=== PATIENT | male | born 1990 | race African-American/Black ===

== ENCOUNTER → 2023-10-24 | Emergency (ER) | payer OTHER ==
[~2023-10-24] MED LIST: LABETALOL 20 MG/4ML SYRINGE IV ONE
[2023-10-24 17:07] LABS: Absolute Lymphocytes (CBC) 2.1 K/uL (0.7-4.9); Lymphocytes % 30.6 % (15.3-44.8); MCV 91.4 fL (80-100); Platelets 246 thou/uL (152-406); RBC Red Blood Cell Count 4.59 M/uL (4.33-5.43)
[2023-10-24 17:23] LABS: Potassium 3.7 mEq/L (3.5-5.1); Troponin High Sensitivity 6.6 pg/mL (<58.9)
--- NOTE | 2023-10-24 17:38 | ER ---
Nurse's Notes [facility] Name: Marcelo Ontiveros Age: 33 yrs Sex: Male : 1990 Arrival Date: 10/24/2023 Time: 16:18 Bed 18 Private MD: Diagnosis: Essential (primary) hypertension Presentation: 10/24 16:27 Chief complaint: EMS states: patient was evaluated by the nurse at the [facility], where ap3 he was treated for high blood pressure. He was given Lisinopril, Clonidine, Hydrochlorothiazide, and hydralazine [employer]PER[employer]OR [employer] by the nurse at the [facility]. patient denies any pain at this time. Coronavirus screen: At this time, the client does not indicate any symptoms associated with coronavirus-19. Ebola Screen: No symptoms or risks identified at this time. Risk Assessment: Do you want to hurt yourself or someone else? Patient reports no desire to harm self or others. Onset of symptoms was October 24, 2023. 16:27 Method Of Arrival: EMS: [employer] [facility] ap3 16:30 Initial Sepsis Screen: Does the patient meet any 2 criteria? No. Patient's initial bp sepsis screen is negative. Does the patient have a suspected source of infection? No. Patient's initial sepsis screen is negative. Care prior to arrival: IV initiated. 18 GA, in the left antecubital area. 16:30 Acuity: DEION 3 bp Triage Assessment: 16:30 General: Appears in no apparent distress. comfortable, Behavior is calm, cooperative, bp appropriate for age. Pain: Denies pain. Historical: - Allergies: 16:30 No Known Allergies; ap3 - PMHx: 16:30 Hypertensive disorder; ap3 - Immunization history:: Adult Immunizations. - Social history:: Smoking status: Patient denies any tobacco usage or history of. Screenin:31 [facility] ED Fall Risk Assessment (Adult) History of falling in the last 3 months, bp including since admission No falls in past 3 months (0 pts). Abuse screen: Denies threats or abuse. Denies injuries from another. Nutritional screening: No deficits noted. Tuberculosis screening: No symptoms or risk factors identified. Assessment: 16:31 General: SEE TRIAGE NOTE. bp 17:52 Reassessment: PT DC WITH TDCJ. bp Vital Signs: 16:34 BP 197 / 117; Pulse 75; Resp 16; Temp 98; Pulse Ox 98% ; bp 17:52 BP 159 / 101; Pulse 81; Resp 16; Temp 98; Pulse Ox 99% ; bp ED Course: 16:20 Patient arrived in ED. ms3 16:20 Tank Shabazz DO is Attending Physician. ms3 16:25 Dominic Rick, RN is Primary Nurse. bp 16:30 Triage completed. bp 16:30 Arm band placed on. bp 16:31 Patient has correct armband on for positive identification. bp 17:52 No provider procedures requiring assistance completed. IV discontinued. bp Administered Medications: 17:00 Drug: Labetalol IV 10 mg IV at calculated rate once Route: IV; Rate: calculated rate; bp Site: left antecubital; 17:53 Follow up: IV Status: Completed infusion bp Medication: 16:31 VIS not applicable for this client. bp Outcome: 17:38 Discharge ordered by MD. ms3 17:52 Discharged to Law Enforcement bp 17:52 Condition: stable 17:52 Discharge instructions given to patient, police, Instructed on discharge instructions, follow up and referral plans. Demonstrated understanding of instructions, follow-up care, 17:53 Patient left the ED. bp Signatures: Dominic Rick, RN RN bp Corinna Oliver RN RN ap3 Tank Shabazz DO DO ms3
--- NOTE | 2023-10-24 17:38 | EDPHYS ---
Physician Documentation [facility] Name: Marcelo Ontiveros Age: 33 yrs Sex: Male : 1990 Arrival Date: 10/24/2023 Time: 16:18 Bed 18 Private MD: ED Physician Tank Shabazz HPI: 10/24 16:41 This 33 yrs old Black Male presents to ER via EMS with complaints of hypertension. ms3 16:41 33-year-old male with past medical history of hypertension presents to the [facility] for hypertension via [facility] [place] [place] [facility]. Patient denies pain. Patient denies shortness of breath, nausea, vomiting, headache. Patient states he has not taken his medications for the last 1.5 weeks prior to arrival patient was given clonidine 0.1,. Historical: - Allergies: 16:30 No Known Allergies; ap3 - PMHx: 16:30 Hypertensive disorder; ap3 - Immunization history:: Adult Immunizations. - Social history:: Smoking status: Patient denies any tobacco usage or history of. ROS: 16:41 Constitutional: Negative for fever, and chills. Neck: Negative for injury, pain, and ms3 swelling, Cardiovascular: Negative for chest pain, and palpitations. Respiratory: Negative for shortness of breath, cough, wheezing, and pleuritic chest pain, Abdomen/GI: Negative for abdominal pain, nausea, vomiting, diarrhea, and constipation, MS/Extremity: Negative for injury and deformity, Skin: Negative for injury, rash, and discoloration, Psych: Negative for depression, anxiety, suicide ideation, homicidal ideation, and hallucinations, 16:41 All other systems are negative, Exam: 17:38 Constitutional: This is a well developed, well nourished patient who is awake, alert, ms3 and in no acute distress. Head/Face: Normocephalic, atraumatic. Eyes: Pupils equal round and reactive to light, extra-ocular motions intact. Lids and lashes normal. Conjunctiva and sclera are non-icteric and not injected. Periorbital areas with no swelling, redness, or edema. Neck: Trachea midline, no cervical lymphadenopathy. Supple, full range of motion without nuchal rigidity, or vertebral point tenderness. No Meningismus. Chest/axilla: Normal chest wall appearance and motion. Nontender with no deformity. Cardiovascular: Regular rate and rhythm with a normal S1 and S2. No gallops, murmurs, or rubs. Normal PMI, no JVD. No pulse deficits. Respiratory: Lungs have equal breath sounds bilaterally, clear to auscultation and percussion. No rales, rhonchi or wheezes noted. No increased work of breathing, no retractions or nasal flaring. Abdomen/GI: Soft, non-tender, with normal bowel sounds. No distension or tympany. No guarding or rebound. No evidence of tenderness throughout. Skin: Warm, dry with normal turgor. Normal color with no rashes, no lesions, and no evidence of cellulitis. MS/ Extremity: Pulses equal, no cyanosis. Neurovascular intact. Full, normal range of motion. 17:38 ECG was reviewed by the Attending Physician. Vital Signs: 16:34 BP 197 / 117; Pulse 75; Resp 16; Temp 98; Pulse Ox 98% ; bp 17:52 BP 159 / 101; Pulse 81; Resp 16; Temp 98; Pulse Ox 99% ; bp MDM: 16:37 Patient medically screened. ms3 17:38 Differential Diagnosis Asymptomatic HTN vs Renal Insufficiency vs ME. Data reviewed: ms3 vital signs, nurses notes, lab test result(s), and as a result, I will discharge patient. I considered the following discharge prescriptions or medication management in the emergency department Medications were administered in the Emergency Department. See MAR. Independent interpretation of the following test(s) in the Emergency Department EKG: See my EKG interpretation above. Historians other than the Patient: EMS: [facility] [place] [place] [facility]. Care significantly affected by the following chronic conditions: Hypertension. Counseling: I had a detailed discussion with the patient and/or guardian regarding the historical points, exam findings, and any diagnostic results supporting the discharge/admit diagnosis, lab results, the need for outpatient follow up, to return to the emergency department if symptoms worsen or persist or if there are any questions or concerns that arise at home. Special discussion: I have referred the patient to see his PCP for further evaluation of high blood pressure. I discussed with the patient/guardian in detail that at this point there is no indication for admission to the hospital. It is understood, however, that if the symptoms persist or worsen the patient needs to return immediately for re-evaluation. ED course: Discussed labs, EKG with patient. Patient understands agrees with plan. Patient to follow-up with long term primary care in 2 to 3 days. All questions were answered. Return precautions discussed include worsening symptoms, or any other concerns. on reevaluation patient is alert and orient x 4, no apparent distress, nontoxic-appearing, ambulatory emergency department.. 10/24 16:40 Order name: Basic Metabolic Panel; Complete Time: 17:33 ms3 10/24 16:40 Order name: CBC with Diff; Complete Time: 17:12 ms3 10/24 16:40 Order name: Troponin HS; Complete Time: 17:33 ms3 10/24 16:40 Order name: EKG; Complete Time: 16:40 ms3 10/24 16:40 Order name: Cardiac monitoring; Complete Time: 17:27 ms3 10/24 16:40 Order name: EKG - Nurse/Tech; Complete Time: 17:27 ms3 10/24 16:40 Order name: IV Saline Lock; Complete Time: 16:47 ms3 10/24 16:40 Order name: Labs collected and sent; Complete Time: 17:27 ms3 10/24 16:40 Order name: O2 Per Protocol; Complete Time: 16:47 ms3 10/24 16:40 Order name: O2 Sat Monitoring; Complete Time: 16:47 ms3 EC:38 Rate is 73 beats/min. Rhythm is regular. QRS [place] is Normal. SC interval is normal. QRS ms3 interval is normal. QT interval is normal. Clinical impression: Normal ECG. Interpreted by me. Reviewed by me. Administered Medications: 17:00 Drug: Labetalol IV 10 mg IV at calculated rate once Route: IV; Rate: calculated rate; bp Site: left antecubital; 17:53 Follow up: IV Status: Completed infusion bp Disposition Summary: 10/24/23 17:38 Discharge Ordered Notes: Location: Home ms3 Condition: Stable ms3 Diagnosis - Essential (primary) hypertension ms3 Followup: ms3 - With: Private Physician - When: 2 - 3 days - Reason: Recheck today's complaints Discharge Instructions: - Discharge Summary Sheet ms3 - Hypertension, Adult ms3 Forms: - Medication Reconciliation Form ms3 - Thank You Letter ms3 - Antibiotic Education ms3 - Prescription Opioid Use ms3 - Patient Portal Instructions ms3 - Leadership Thank You Letter ms3 Signatures: Dispatcher [employer] EDMS Dominic Rick RN RN bp Corinna Oliver RN RN ap3 Tank Shabazz DO DO [facility] Corrections: (The following items were deleted from the chart) 17:10 16:41 33-year-old male with past medical history of hypertension presents to the [facility] [place] department for hypertension via [facility] [place] [place] [facility]. Patient denies pain. Patient denies shortness of breath, nausea, vomiting, headache. Patient states he has not taken his medications for the last 1.5 weeks. ok3
[2023-10-25 03:38] VITALS: BP 159/101; TEMP 98; O2SAT 99
--- NOTE | 2023-10-25 12:56 | EKG ---
Test Date: 2023-10-24 Test Time: 17:24:21 Printer'S Assistant: BP MEASUREMENT RESULTS: Intervals: Rate: 73 WA: 204 QRSD: 102 QT: 390 QTc: 429 [place]: P: 59 WA: 204 QRS: 69 T: 26 INTERPRETIVE STATEMENTS: Normal sinus rhythm Normal ECG No previous ECG available for comparison Electronically Signed On 10-25-23 12:52:45 DIPLOMATIC COURIER by Deni Elizondo
== END ==
LOC: ER 16:18
DX: I10 Essential (primary) hypertension (principal)
CPT/HCPCS: 36415; 80048; 84484; 85025; 93005